=== PATIENT | female | born 1960 | race Caucasian/White ===

== ENCOUNTER 2025-01-25 06:27 | Inpatient (IN) | payer BC, SELFPAY ==
[2025-01-25] VITALS (14 sets, daily range): BP systolic 102–129; BP diastolic 46–85; PULSE 60–78; RESP 18–20; TEMP 36.4–37.7; O2SAT 89–96; BMI 26.4; BMI 27.5
--- NOTE | 2025-01-25 07:04 | XR_ITS ---
Examination: CT abdomen with intravenous contrast CT pelvis with intravenous contrast 2-D coronal reconstructions 2-D sagittal reconstructions Date and time of exam:January 25, 2025 0944 hours, comparison 02/23/2024 INDICATIONS: Right lower abdominal pain and fever beginning 3 days ago. CTDI: vol (mGy) 11 DLP: (mGycm) 653 Technique: Multiple axial sections of the abdomen and pelvis have been obtained. 64 slice high-resolution scanner used. 3 mm axial sections have been obtained, post intravenous injection of 60 cc Isovue 370 2-D sagittal, coronal reconstructions obtained. Low dose protocols were performed. One or more of the following dose reduction techniques were used; automated exposure control, adjustment of the mA and/or KV according to patient size, use of iterative reconstruction technique. Findings: Mild to moderate enlargement cardiac contour Liver is irregular in contour Small gallstones Spleen is not enlarged No pancreatic mass No extrahepatic biliary tract dilatation 29 mm fat-containing left adrenal mass,. Infrarenal abdominal aortic aneurysm AP dimension 3.7 cm No renal or ureteral calculi, no hydronephrosis Enlarged inflamed appendix with appendicolith, retrocecal and below the cecum, axial images 179 through 134, very pronounced periappendiceal and pericecal inflammatory change although no obvious abscess Colonic diverticulosis Atrophic uterus Bladder intact Advanced lumbar degenerative disc disease lower 4 lumbar levels IMPRESSION: Acute appendicitis with localized perforation No pelvic abscess
--- NOTE | 2025-01-25 07:05 | PD.EDRME ---
Rapid Medical Screening Exam RME Arrival date/time: 01/25/25 06:27 64-year-old female presents to the Emergency Department today for complaints of right lower abdominal pain ongoing for 3 to 4 days Chief Complaint: Abdominal Pain Vital signs: Vital Signs Temperature 98.4 F 01/25/25 06:45 Pulse Rate 78 01/25/25 06:45 Respiratory Rate 18 01/25/25 06:45 Blood Pressure 107/64 01/25/25 06:45 Pulse Oximetry (%) 96 01/25/25 06:45 Oxygen Delivery Method Room Air 01/25/25 06:45
--- NOTE | 2025-01-25 07:46 | EDNOTE_ITS ---
ED Abdominal Pain RME/HPI General Chief Complaint: Abdominal Pain Stated complaint: RIGHT LOWER ABD PAIN,NAUSEA Time seen by provider: 01/25/25 07:13 Arrival date/time: 01/25/25 06:27 RME / HPI RME / HPI narrative: 01/25/25 06:27 64-year-old female presents to the Emergency Department today for complaints of right lower abdominal pain ongoing for [address] SANDHU MAIN ED EVALUATION 64 year old female with history of AICD placement, s/p cardiac stent x1, thyroid CA in remission presents to the ED for evaluation of abdominal pain beginning 2 days ago and remaining constant since. Described as sharp in sensation localized to the right lower quadrant without radiation, rating as moderate to severe. Initially accompanied by constipation that turned to diarrhea yesterday, nausea, dry heaving, and decreased appetite. Patient denies any history of similar pain. Denies any known modifying factors. Denies fevers, chills, or urinary symptoms. Related Data Allergies Allergy/AdvReac Type Severity Reaction Status Date / Time Penicillins Allergy Intermediate BREAK OUT Verified 01/25/25 06:28 Review of Systems Review of Systems Systems Reviewed: All systems reviewed, normal except as documented Past Medical History Past Medical History ENDOCRINE: Positive Hypothyroidism OTHER HISTORY: Positive Cancer (Thyroid) Surgical History SURGICAL: Positive Thyroidectomy Social History SMOKING STATUS: Never smoker ED Exam Narrative Physical exam: GENERAL APPEARANCE: alert and oriented x 4, well-developed, well-nourished, appears uncomfortable HEENT: Normocephalic, atraumatic; pupils equal, round, reactive to light; EOMI; mucous membranes pink, moist; oropharynx clear NECK: Supple LUNGS: CTABL HEART: Regular rate, regular rhythm ABDOMEN: non distended; normal BS; soft, Mcburney's point tenderness, + rovsing's sign, + psoas sign; no masses, no organomegaly, no hernia EXTREMITIES: atraumatic; no edema NEUROLOGIC: awake; alert and oriented x4 PSYCHIATRIC: appropriate mood and affect SKIN: warm, dry, normal color; no rashes Course Course Course Narrative: 824: Labs were reviewed showing elevated WBC (15.9), UA is negative for infection. At this time pending CMP. Differential diagnosis includes appendicitis. 1000: I reviewed CT images - appears to have significant inflammation of appendix with appendicolith consistent with appendicitis. The CT report confirms acute appendicits with localized perforation. The patient is allergic to penicillin and ordered Flagyl and Levaquin. Will consult with surgeon. 1015: I spoke with surgeon Dr. Paul, made aware of the patient?s radiology results. Will come evaluate patient in the ED. 1020: I reviewed all the results, analysis, and treatment plan with the patient. 1100: Dr. Paul has evaluated the patient and will admit for surgery. Quality Measures none Orders Category Date Time Status CT Screening NOW Care 01/25/25 07:04 Active Insert IV NOW Care 01/25/25 07:04 Active NPO NOW Care 01/25/25 10:22 Active Diet NPO (NOW) Diet 01/25/25 10:[address] abdomen pelvis w con Stat Exams 01/25/25 07:04 Completed CBC Stat Lab 01/25/25 07:46 Completed Comprehensive Metabolic Panel Stat Lab 01/25/25 07:46 Completed Lipase Stat Lab 01/25/25 07:46 Completed UA, C/S IF [Urinalysis, C/S if Indicated] Stat Lab 01/25/25 07:33 Completed Ketorolac Inj [Toradol Inj] Med 01/25/25 07:25 Discontinued 30 mg IVP X1 ONE Levofloxacin/D5w 500 mg Ivpb [Levaquin Ivpb] Med 01/25/25 10:15 Active 500 mg in 100 ml IV QDAY Ondansetron Inj [Zofran Inj] Med 01/25/25 07:25 Discontinued 4 mg IVP X1 ONE Sodium Chloride 0.9% 1000 ml [Ns] 1,000 ml Med 01/25/25 10:21 Active IV 100 mls/hr metroNIDAZOLE/NS 500 MG IVPB [Flagyl 500 mg IV] Med 01/25/25 10:08 Discontinued 500 mg in 100 ml IV X1 Vital Signs Vital signs: Vital Signs Temperature 98.4 F 01/25/25 06:45 Pulse Rate 78 01/25/25 06:45 Respiratory Rate 18 01/25/25 06:45 Blood Pressure 107/64 01/25/25 06:45 Pulse Oximetry (%) 96 01/25/25 06:45 Oxygen Delivery Method Room Air 01/25/25 06:45 Pulse ox is 96% on room air which is adequate. Abdominal Pain MDM MDM Narrative MDM Narrative:: Lisa Glasgow, dacia scribing for and in the presence of Dr. Sandhu. Patient data External records reviewed:: [facility] previous records (I reviewed ED visit on 02/23/2024 and the patient was transferred to [facility] for GI/ERCP vs MRCP. ) Clinical information provided by:: patient Social determinants that could affect healthcare access:: none Patient has the following chronic illnesses:: AICD placement, s/p cardiac stent x1, thyroid CA in remission How is presenting disease/condition affected by chronic disease/condition?: uneffected by Evaluation data The following diagnostics were reviewed and interpreted by me:: lab results and radiology exam(s) Lab and/or radiology exams considered but not ordered:: none Interpretation Summary: Ordering Physician: Kermit LAST)Franky NP Date of Service: 01/25/25 Procedure(s): CT abdomen pelvis w con Accession Number(s): [id number] cc: Gigi Rouse MD; Kermit LAST),Franky AGOSTO; John Nicole MD~ Examination: CT abdomen with intravenous contrast CT pelvis with intravenous contrast 2-D coronal reconstructions 2-D sagittal reconstructions Date and time of exam:January 25, 2025 0944 hours, comparison 02/23/2024 INDICATIONS: Right lower abdominal pain and fever beginning 3 days ago. CTDI: vol (mGy) 11 DLP: (mGycm) 653 Technique: Multiple axial sections of the abdomen and pelvis have been obtained. 64 slice high-resolution scanner used. 3 mm axial sections have been obtained, post intravenous injection of 60 cc Isovue 370 2-D sagittal, coronal reconstructions obtained. Low dose protocols were performed. One or more of the following dose reduction techniques were used; automated exposure control, adjustment of the mA and/or KV according to patient size, use of iterative reconstruction technique. Findings: Mild to moderate enlargement cardiac contour Liver is irregular in contour Small gallstones Spleen is not enlarged No pancreatic mass No extrahepatic biliary tract dilatation 29 mm fat-containing left adrenal mass,. Infrarenal abdominal aortic aneurysm AP dimension 3.7 cm No renal or ureteral calculi, no hydronephrosis Enlarged inflamed appendix with appendicolith, retrocecal and below the cecum, axial images 179 through 134, very pronounced periappendiceal and pericecal inflammatory change although no obvious abscess Colonic diverticulosis Atrophic uterus Bladder intact Advanced lumbar degenerative disc disease lower 4 lumbar levels IMPRESSION: Acute appendicitis with localized perforation No pelvic abscess Dictated By: John Nicole MD Signed By: <Electronically signed by John Nicole MD in OV> 01/25/25 0986 Medications / Prescriptions Medications or Prescriptions considered but not ordered:: None Medication administrations:: Medication Administration History Levofloxacin/Dextrose (Levaquin Ivpb) 500 mg in 100 mls @ 100 mls/hr IV QDAY DENISE Stop: 02/01/25 10:14 Sodium Chloride (Ns) 1,000 mls @ 100 mls/hr IV .Q10H DENISE Stop: 02/24/25 10:20 Discontinued Medications Metronidazole (Flagyl 500 Mg Iv) 500 mg in 100 mls @ 100 mls/hr IV X1 ONE Stop: 01/25/25 11:07 Ketorolac Tromethamine (Ketorolac Inj 30 Mg/Ml Vial) 30 mg IVP X1 ONE Stop: 01/25/25 07:26 Last Admin: 01/25/25 09:31 Dose: 30 mg Documented By: VL Ondansetron HCl (Ondansetron Inj 2 Mg/Ml Inj 2 Ml) 4 mg IVP X1 ONE; Protocol Stop: 01/25/25 07:26 Last Admin: 01/25/25 09:32 Dose: 4 mg Documented By: VL See above Consultations Consultation(s) initiated? (list below): Yes Consultation #1 (Physician, Specialty, Details): I spoke with surgeon Dr. Paul as noted above. Time: 10:15 Diagnosis Differential diagnosis abdominal pain: abdominal pain, acute appendicitis and calculus of kidney Most likely diagnosis given after review of the tests above:: Acute appendicitis Admission Indicated Admission indicated?: indicated Admission Request Was there a request for admission?: Yes Admission Attestation Admission request attestation: Discussed case with [] from Hospitalist service regarding admission. Discussed patients ED course, exam findings, labs, and radiology results. The Hospitalist [agrees,declines] to accept the patient for admission. Disposition Plan Disposition Plan: Admit Discharge Plan Plan Patient Disposition: Other Care w/in Hosp ([facility]) Discharge Disposition comment: Admit to surgeon Dr. Paul Prescriptions/Referrals Referrals: Gigi Rouse MD [Primary Care Provider] - In 1 week Problem List Clinical Impression: Acute appendicitis Patient/Caregiver Discharge Instructions Print Language: Serbian Stand Alone Forms: [employer] Info., Patient Portal Info Letter
[2025-01-25 08:01] LABS: Basophils # (Auto) 0.0 Thou/mm3 (0.0-0.2); Basophils % (Auto) 0 % (0-2.5); Eosinophils # (Auto) 0.0 Thou/mm3 (0.0-0.5); Eosinophils % (Auto) 0 % (0-10); Hematocrit 35.9 % (36.0-46.0); Hemoglobin 12.1 g/dL (12.0-16.0); Immature Granulocytes Auto 0.10 Thou/mm3 (0.00-0.00); Lymphocytes # (Auto) 1.2 Thou/mm3 (1.0-4.8); Lymphocytes % (Auto) 8 % (10-50); Mean Corpuscular HGB Conc 33.7 g/dl (31.0-37.0); Mean Corpuscular Hemoglobin 31.7 pg (25.0-35.0); Mean Corpuscular Volume 94 fL (80-100); Monocytes # (Auto) 1.3 Thou/mm3 (0.0-0.8); Monocytes % (Auto) 8 % (0-12); Neutrophils # (Auto) 13.3 Thou/mm3 (1.8-7.7); Neutrophils % (Auto) 84 % (37-80); Nucleated Red Blood Cell # 0.00 Thou/mm3 (0.00-0.00); Nucleated Red Blood Cell % 0 /100 WBC (0); Platelet Count 205 Thou/mm3 (140-440); RDW Standard Deviation 46.0 fL (36.4-46.3); Red Blood Count 3.82 Miln/mm3 (4.00-5.20); White Blood Count 15.9 Thou/mm3 (3.6-11.0)
[2025-01-25 08:01] LABS: Collection Type, Urine Clean Catch; RBC,Urine 0 /hpf (0-3)
[2025-01-25 08:24] LABS: Bilirubin,Urine Negative (Negative); Blood,Urine Negative (Negative); Clarity,Urine Clear (Clear/Hazy); Color,Urine Yellow (Lt Yel-Yel); Culture Indicated,Urine Not Indicated; Glucose, Urine Negative (Negative); Hyaline Casts,Urine < 1 /hpf (0-1); Ketones,Urine Negative (Negative); Leukocyte Esterase,Urine Positive (Negative); Nitrite,Urine Negative (Negative); PH,Urine 6.0 (5.0-7.0); Protein,Urine 1+ (Neg - Trace); Specific Gravity,Urine 1.032 (1.001-1.035); Squamous Epithelial Cell,Urine 2 /hpf (0-5); Urobilinogen,Urine 2.0 mg/dL (0.0-1.0); WBC,Urine 2 /hpf (0-5)
[2025-01-25 08:55] LABS: Alanine Aminotransferase 11 U/L (10-49); Albumin, Serum 4.4 gm/dL (3.4-4.8); Albumin/Globulin Ratio 1.8 (1.2-2.2); Alkaline Phosphatase 103 U/L (46-116); Anion Gap 11 (7-16); Aspartate Amino Transferase 12 U/L (0-34); BUN/Creatinine Ratio 11 Ratio (12-20); Bilirubin,Total 2.7 mg/dL (0.3-1.2); Blood Urea Nitrogen 12 mg/dL (9-23); Calcium 9.2 mg/dL (8.3-10.6); Calcium (Corrected) 9.2 mg/dL (8.5-10.1); Carbon Dioxide 26.9 mMol/L (20.0-31.0); Chloride 98 mMol/L (98-107); Creatinine (Component) 1.1 mg/dL (0.6-1.3); Estimated Creatinine Clearance 66.3 mL/min (>60); Globulin 2.5 gm/dL (2.3-3.5); Glucose 159 mg/dL (74-106); Lipase 27 U/L (12-53); Osmolality,Calculated 274 (275-295); Potassium 3.7 mMol/L (3.4-5.1); Sodium 136 mMol/L (136-145); Total Protein 6.9 gm/dL (5.7-8.2); eGFR 57 See Note
[2025-01-25] MEDS: KETOROLAC INJ 30 MG/ML VIAL IVP (09:31)
[2025-01-25] MEDS: ONDANSETRON INJ 2 MG/ML INJ 2 ML 4 MG IVP ×2 (09:32→18:36)
[2025-01-25] MEDS: LEVOFLOXACIN/D5W 500 MG IVPB 500 MG/100 ML BAG 100 MG IV (11:28)
[2025-01-25] MEDS: SODIUM CHLORIDE 0.9% 1000 ML 1,000 ML 100 ML IV (11:28)
[2025-01-25 12:03] LABS: Troponin I 0.026 ng/mL (0.0-0.045)
[2025-01-25 12:05] LABS: Partial Thromboplastin Time 27.5 Seconds (22.0-36.0)
--- NOTE | 2025-01-25 13:27 | XR_ITS ---
Examination: AP chest single view TECHNIQUE: Portable sitting AP chest single view Date and time: January 25, 2025 1343 hours Comparison 02/23/2024 INDICATION: Chest pain beginning 4 days ago FINDINGS: Mild enlargement cardiac contour Cardiac leads satisfactory position No lobar pneumonia or pulmonary edema Moderate osteopenia IMPRESSION: No lobar pneumonia or pulmonary edema
[2025-01-25 13:36] LABS: INR 1.1 (0.9-1.3); Prothrombin Time 11.7 Seconds (9.0-12.2)
--- NOTE | 2025-01-25 13:49 | ESHP_ITS ---
<Statement entered by Cinthya Roque MD - 01/25/25 15:53> I have reviewed the note and agree with the resident's assessment & plan with exceptions as below. I have personally reviewed labs, imaging, home meds/prior records, examined the patient, formulated and discussed management plan with the IM team. Patient examined at bedside today. Patient coming in for evaluation of abdominal pain located in the right lower quadrant. Patient reports that she usually is constipated and need to take MiraLAX and if she does not take MiraLAX she can have bowel movements once a week. She reports that she has never had abdominal pain like this before. She does report extensive heart history including having a dual-chamber pacemaker for heart failure and she recently had stents placed in. She denies having any operation for her chronic medical infrarenal thrombus or 3.7 cm aortic aneurysm. At this time general surgery is on consult who ordered platelets for the patient before appendectomy as pt takes Plavix and took a dose today. Patient, considering cardiac history will likely need cardiac clearance for evaluation of infrarenal thrombus, aortic aneurysm and having heart failure and pacemaker. Therefore, we will consult cardiology. Levaquin can increase risk for aortic aneurysm, therefore we will discontinue this medicine. Will continue with Rocephin and Flagyl at this time. Repeat hematology and chemistry in the a.m. Will require tight BP control for aortic aneurysm hx. Surgery on consult, appreciate recommendations. #Appendicitis #History of heart failure #History of dual chamber pacemaker #History of infrarenal thrombus #History of aortic aneurysm, 3.7 cm #Hyperbilirubinemia Cinthya Roque, PGY-2 Internal Medicine Documentation for date of: 01/25/25 HPI History of Present Illness History of present illness: Mrs. Franklin is a 64 year old female with past medical history of CAD (s/p stent x1 02/2024), thyroid cancer (in remission for 40 years) presented to the ED for abdominal pain and nausea. Patient states she started to have pain about 4 days ago that was located on her R flank. States around 2 days the pain moved to more around her RLQ that does not radiate. This caused her great distress and was unable to sleep last night, prompting her to the hospital today. Patient states she has been nauseous with dry heaving, had a mild fever with headache and decreased appetite during this time as well. Patient states she is usually constipated, but had non-bloody diarrhea yesterday. Patient denied any recent sick contacts or ever having this happen before. Patient denies recent weight loss, respiratory issues, chest pain, vomiting, dysuria. Past Medical History: above Family History: none noted Surgical History: Cardiac stent x1 2023, ICD placement 2024, thyroidectomy (more than 20 yrs ago). Social History: Endorses smoking hx 10 pk years (quit a few years ago), endorses occasional alcohol use, denies recreational drug use Current Medications: Clopidogrel 75 mg, Digoxine 0.125 q other day, Aspirin 81 mg, Atorvastatin 80 mg, Ivabradine (5 mg am & pm), Entresto 12 mg (am & pm), Metoprolol 12.75 mg, Ivabradin 5 mg (am & pm), levothyroxine 88 mcg, multivitamin, stool softener, biotin, Magnesium tab 400 mg. Allergies: No known drug allergies ED Course: -Initial vitals were 98.4 F, HR 78, RR 18, BP 107/64, 96% O2 on RA. -Labs significant for WBC 15.9, glucose 159, T Bili 2.7, Trop 0.026, lipase 27. -Imaging included CT AP significant for Acute appendicitis with localized perforation & infrarenal abd aortic aneurysm 3.7cm (present on 02/2024 CTA CAP) -In the ED, patient was given Ketorolac 30 mg, Zofran 4 mg, Levofloxacin 500 mg, NS IV fluids -Patient was admitted for appendicitis, pending cardiac clearance for surgery. Review of Systems Review of systems otherwise negative except what is mentioned above. Exam Vital Signs Temp Pulse Resp BP Pulse Ox O2 Del Method 99.8 F 60 18 118/81 96 Room Air 01/25/25 10:01/25/25 10:01/25/25 10:01/25/25 10:01/25/25 10:01/25/25 10:09 Narrative Exam General: No acute distress; A&Ox3 Skin: Warm, dry, intact, no obvious rash. HENT: NCAT, EOMI, not icteric. External ears normal. No rhinorrhea. Moist mucous membranes Cardiovascular: Regular rate and rhythm, no murmur, +S1/S2. Respiratory: Lungs CTAB GI: Positive McBurney Point tenderness, Negative Rovsing's sign; rest of abd soft, non-distended. No guarding or rebound tenderness. Extremities: no edema, no cyanosis, no clubbing. Extremity pulses present Neuro: No focal deficits observed. Conversant, moving all extremities. No overt cerebellar signs/incoordination. Psychiatric: Cooperative, appropriate affect. Results: Labs 01/25/25 07:46 01/25/25 07:46 Labs: Short CBC 01/25/25 Range/Units 07:46 WBC 15.9 H (3.6-11.0) Thou/mm3 Hgb 12.1 (12.0-16.0) g/dL Hct 35.9 L (36.0-46.0) % Plt Count 205 (140-440) Thou/mm3 BMP 01/25/25 07:46 Sodium 136 Potassium 3.7 Chloride 98 Carbon Dioxide 26.9 BUN 12 Creatinine 1.1 Glucose 159 H Calcium 9.2 Cardiac Enzymes 01/25/25 Range/Units 11:31 Troponin I 0.026 (0.0-0.045) ng/mL Liver Function 01/25/25 Range/Units 07:46 Total Bilirubin 2.7 H (0.3-1.2) mg/dL AST 12 (0-34) U/L ALT 11 (10-49) U/L Alkaline Phosphatase 103 (46-116) U/L Albumin 4.4 (3.4-4.8) gm/dL Urine 01/25/25 Range/Units 07:33 Urine Color Yellow (Lt Yel-Yel) Urine Clarity Clear (Clear/Hazy) Urine pH 6.0 (5.0-7.0) Ur Specific [place] 1.032 (1.001-1.035) Urine Protein 1+ A (Neg - Trace) Urine Glucose (UA) Negative (Negative) Quality Measures Quality Measures none (surgery) Medications Home Medications and Allergies Home Medications ?Medication ?Instructions ?Recorded ?Confirmed ?Type atorvastatin 80 mg tablet mg 01/25/25 History clopidogrel 75 mg tablet mg 01/25/25 History digoxin 125 mcg (0.125 mg) tablet 0.125 mg PO .every o ther day 01/25/25 01/25/25 History levothyroxine 88 mcg tablet 88 mcg PO .AM 01/25/2504/11 History magnesium oxide 400 mg (241.3 mg mg 01/25/25 History magnesium) tablet metoprolol succinate 25 mg mg PO 01/25/25 History tablet,extended release 24 hr Allergies Allergy/AdvReac Type Severity Reaction Status Date / Time Penicillins Allergy Intermediate BREAK OUT Verified 01/25/25 06:28 Visit Medications Levofloxacin/Dextrose (Levaquin Ivpb) 500 mg in 100 mls @ 100 mls/hr IV QDAY DENISE Stop: 02/01/25 10:14 Last Admin: 01/25/25 11:28 Dose: 100 mls/hr Sodium Chloride (Ns) 1,000 mls @ 100 mls/hr IV .Q10H DENISE Stop: 02/24/25 10:20 Last Admin: 01/25/25 11:28 Dose: 100 mls/hr Discontinued Medications Metronidazole (Flagyl 500 Mg Iv) 500 mg in 100 mls @ 100 mls/hr IV X1 ONE Stop: 01/25/25 11:07 Ketorolac Tromethamine (Ketorolac Inj 30 Mg/Ml Vial) 30 mg IVP X1 ONE Stop: 01/25/25 07:26 Last Admin: 01/25/25 09:31 Dose: 30 mg Ondansetron HCl (Ondansetron Inj 2 Mg/Ml Inj 2 Ml) 4 mg IVP X1 ONE; Protocol Stop: 01/25/25 07:26 Last Admin: 01/25/25 09:32 Dose: 4 mg Assessment & Plan Plan Mrs. Franklin is a 64 year old female with past medical history of CAD (s/p stent x1 02/2024), thyroid cancer (in remission for 40 years) presented to the ED for abdominal pain and nausea. Patient was admitted for appendicitis, pending cardiac clearance for surgery. #Acute appendicitis w/ localized perforation Patient presented after days of abdominal pain which started R flank and moved to RLQ, nonradiating. Labs showed WBC 15.9, T Bili 2.7, Trop (-), lipase 27, In ED, Patient given Ketorolac 30 mg, Zofran 4 mg, Levofloxacin 500 mg, some NS IV fluids (held). -Discontinued Levofloxacin due to increased risk of Aortic aneursym and dissection. -Started Rocephin 1 gm, Flagyl 500 mg -Platelets ordered due to being on Plavix and need for surgery -Type and Screen done -Surgery Consulted -Cardiology consulted for pre-op clearance. #Abdominal Aortic Aneurysm #hx of CAD (s/p stent x1 02/2024) #HLD #CHF On admission CT AP, Infrarenal abdominal aortic aneurysm AP dimension 3.7 cm was seen. Previous admission 02/2024 CTA CAP showed Infrarenal abdominal aortic aneurysmal dilatation, AP dimension 3.7 cm with extensive chronic mural thrombus. Patient has a history of CAD (s/p stent x1 02/2024) Home meds of Clopidogrel 75 mg, Digoxine 0.125 q other day, Aspirin 81 mg, Atorvastatin 80 mg, Ivabradine (5 mg am & pm), Entresto 12 mg (am & pm), Metoprolol 12.75 mg, Ivabradin 5 mg (am & pm) -Restarted Atorvastatin 80 mg. -Digoxin levels, Hgb A1c, lipid panel, coags, tsh, ordered -cardiology consulted for surgery clearance, appreciate recs. #hyperbilirubinemia May be due to congestion from hx of CHF vs hepatobiliary irritation from localized appendix perforation Admission Total Bilirubin was elevated at 2.7. -Will continue to monitor #hx thyroid cancer s/p thyroidectomy Patient takes home medication of levothyroxine 88 mcg -will restart levothyroxine 88 mcg tomorrow morning after surgery Hospital Management: Disposition: tele Diet: NPO pending surgery GI Prophylaxis: n/a Bowel Prophylaxis: Miralax DVT Prophylaxis: SCD's CODE STATUS: FULL CODE Patient plan of care was discussed with the attending physician, Dr. Hou & senior resident Dr. Mya Lopez MD PGY-1 Attending Provider Attestation/Addendum I have discussed and was present for the essential components of the history, physical examination, diagnosis, and treatment plan with the resident. I agree with the patient's care as documented by the resident and amended herein by me. Bennie Hou DO. Although this document has been carefully reviewed, there may still be some phonetic and other typographical errors. These errors are purely grammatical due to imperfections in the software program and should not be construed in any way to compromise the substance of the patient's medical care during this visit.
[2025-01-25] MEDS: metroNIDAZOLE/NS 500 MG IVPB 500 MG/100 ML BAG 100 MG IV (14:13)
--- NOTE | 2025-01-25 16:08 | ESCONSULT_ITS ---
HPI Consult details Consult date: 01/25/25 Reason for consultation narrative: Right lower quad abdominal pain with nausea and vomiting History of present illness: 64-year-old female with history of CAD status post stent placement presented to the emergency department with worsening abdominal pain. Her symptoms started about 4 days ago with periumbilical and lower abdominal pain. The pain was initially intermittent. Since yesterday her pain has become persistent and progressively worse and localized over right lower quadrant. She has had nausea and vomiting, but denies fever, chills, diarrhea, constipation or dysuria. She denies having similar symptoms in the past. Review of Systems Constitutional Constitutional: Denies chills and Denies fever(s) Cardiovascular Cardiovascular: Denies chest pain Respiratory Respiratory: Denies cough Gastrointestinal Gastrointestinal: Reports abdominal pain, Reports nausea and Reports vomiting Genitourinary Genitourinary: Denies difficulty voiding Hematologic/Lymphatic Hematologic/Lymphatic: Denies easy bleeding and Reports easy bruising Past Medical History Surgical History OTHER SURGICAL HX: Total thyroidectomy, pacemaker/AICD implantation, cardiac cath with stent placement Social History SMOKING STATUS: Former smoker SUBSTANCE USE: does not use ALCOHOL: Current Meds Home Medications and Allergies Home Medications ?Medication ?Instructions ?Recorded ?Confirmed ?Type atorvastatin 80 mg tablet mg 01/25/25 History clopidogrel 75 mg tablet mg 01/25/25 History digoxin 125 mcg (0.125 mg) tablet 0.125 mg PO .every o ther day 01/25/25 01/25/25 History levothyroxine 88 mcg tablet 88 mcg PO .AM 01/25/2504/11 History magnesium oxide 400 mg (241.3 mg mg 01/25/25 History magnesium) tablet metoprolol succinate 25 mg mg PO 01/25/25 History tablet,extended release 24 hr Allergies Allergy/AdvReac Type Severity Reaction Status Date / Time Penicillins Allergy Intermediate BREAK OUT Verified 01/25/25 06:28 Exam Vital Signs Temp Pulse Resp BP Pulse Ox O2 Del Method 98.4 F 62 18 108/59 L 96 Room Air 01/25/25 14:50 01/25/25 14:50 01/25/25 14:50 01/25/25 14:50 01/25/25 14:50 01/25/25 14:50 Constitutional Constitutional: no acute distress Routine Abdominal Exam Comments: Abdomen is soft and nondistended. She has right lower quadrant tenderness to palpation with guarding and localized peritonitis. Results Results: Laboratory Laboratory results: results reviewed Results: Imaging CT scan - abdomen: report reviewed and image reviewed CT scan - pelvis: report reviewed and image reviewed Assessment & Plan Additional Assessment Additional comments: Acute appendicitis with localized peritonitis Plan Patient is on Plavix and she took her Plavix earlier today. Will obtain platelets for transfusion during operation, platelets will have to be brought in from [place] that may take few hours. Risks of the procedure include but not limited to infection, bleeding, injury to bowel, surrounding vascular structures, abdominal sepsis and or abdominal abscess, need for further procedure and or operation, pneumonia, blood clot, heart attack discussed with the patient. Benefits and alternatives explained to her, all her questions answered, she agreed and consented to proceed with the operation.
--- NOTE | 2025-01-25 17:19 | ESOP_ITS ---
Date of Procedure 01/25/25 Pre Op Diagnosis Acute appendicitis Post Op Diagnosis Perforated and gangrenous appendicitis with localized abscess and peritonitis Procedure Laparoscopic appendectomy with abdominal washout Findings Perforated gangrenous appendix with localized abscess and peritonitis Procedure Description Patient was brought into the operating room in supine position. After administration of general endotracheal anesthesia, abdomen was prepped and draped in standard surgical manner. Platelet transfusion was started. A Veress needle was inserted through the umbilicus and pneumoperitoneum was obtained up to 15 mmHg. The Veress needle was removed and a 5 mm umbilical incision was made. A 5 mm trocar was placed and laparoscopic camera was inserted. Under direct visualization a laparoscopic camera a 5 mm trocar placed in suprapubic region and a 10 mm trocar placed in left lower quadrant. The abdomen was inspected.there were significant amount of inflammatory reaction over the right lower quadrant with omentum adherent in the right lower quadrant. Omental adhesions was retracted cephalad into the left upper quadrant and the cecum was identified. There was perforation of the proximal aspect of the appendix with localized abscess and the appendix appeared to be gangrenous in appearance. The purulent fluid was washed and irrigated. A window was created between the appendix and mesoappendix and the appendix was divided near the appendix and cecal junction with blue Endo MERRILL stapling device. The mesoappendix was divided with serna Endo MERRILL stapling device. The appendix was placed inside an Endo Catch and removed from the abdomen utilizing left lower quadrant trocar site. An additional 5 mm trocar was required in the right upper quadrant to retract the small bowel cephalad to the pelvis could be clearly visualized, washed and irrigated. Abdomen and pelvis copiously and thoroughly washed and irrigated, all the fluids were suctioned and the suctioned fluid returned clear. Hemostasis was adequate and satisfactory, staple lines were intact without bleeding or any leakage. Left lower quadrant trocar sites fascial defect was closed with 0 Vicryl using Endo closure device. Instruments and trocars removed, pneumoperitoneum was evacuated and the incisions closed with 4-0 Monocryl subcuticular fashion. Instruments, needles and sponge counts were reported to be correct ??2. Patient tolerated the procedure well, was extubated, breathing spontaneously and without difficulty and was transferred to postanesthesia care in stable condition. Anesthesia GETA and local Pathology / specimen Other (Appendix) Estimated Blood Loss 25 Condition Stable Disposition PACU Surgeon Lefty Paul MD Surgical Staff Operation Date: 01/25/25 16:15 Case Staff COMPOSITION WORKER: Jorge Randall
--- NOTE | 2025-01-25 17:32 | SUR.PHASEI ---
pt received to pacu bay 1. vss. breathing even and unlabored. dermabond in place to abdomen x4. report from nurse yuli and threading machine operator tahir. oral air way out by tahir on arrival. pt denies pain and nausea.
--- NOTE | 2025-01-25 17:51 | SUR.PHASEI ---
report called to renita on ms. vss. dressing cdi. tolerating ice chips. breathing even and unlabored. transported to room via [facility]
[2025-01-25] MEDS: CEFOXITIN 2 GM in SODIUM CHLORIDE 0.9% (Popper) 50 ML IV (18:37)
[2025-01-25] MEDS: MORPHINE SULF INJ 10 MG/ML VIAL 2 MG IVP ×2 (18:38→23:21)
--- NOTE | 2025-01-25 19:40 | ESCONSULT_ITS ---
RE: YEIMI HODGES : 1960 DATE OF CONSULTATION: 01/25/2025 REASON FOR EVALUATION: Cardiac clearance for appendectomy, emergency surgery, complaint of abdominal pain. HISTORY OF PRESENT ILLNESS: The patient is a 64-year-old female with a longstanding history of known CAD, coronary stent placement about a year ago in 02/2024, possibly chronic systolic heart failure, status post INCIDENT ENGINEER defibrillator ICD implantation, came to the hospital with severe abdominal pain, lower abdominal pain, McBurney sign, positive acute appendicitis, requesting cardiac clearance for emergency surgery. By the time I saw the patient, already was taken to the emergency room. I reviewed the medical history and findings. We will assess the patient after the patient has recovered from surgery. ALLERGIES: NONE. MEDICATIONS AT HOME: She has been on, 1. Atorvastatin 2. Clopidogrel 75 mg daily 3. Digoxin 125 daily. 4. Levothyroxine 88 mcg daily. 5. Metoprolol succinate PAST MEDICAL HISTORY: Known CAD status post stent placement. Details unavailable. ICD implantation, INCIDENT ENGINEER, defibrillator implantation, possibility for chronic systolic heart failure, hypertension, hypothyroidism and hypercholesterolemia. REVIEW OF SYSTEMS: Not obtained. PHYSICAL EXAMINATION: Physical exam findings per the evaluation by resident physician. The patient was a well-nourished female, alert, awake and in no acute distress. Vital Signs: Blood pressure of 118/81. Pulse rate is 60, respirations 18, temperature normal. Pulse ox 96% on room air. HEENT: Head is atraumatic. Neck: Supple. Lungs: Decreased breath sounds. Heart: Sounds normal, S1, S2 regular. Abdomen: Thin and soft. Evidence of positive McBurney point tenderness. Extremities: No edema. /Rectal: Not performed. IMAGING: The CT of abdomen and pelvis showed evidence of acute appendicitis with localized perforation. Previous EKG showed sinus rhythm with left bundle branch block. IMPRESSION: 1. Acute appendicitis with perforation. 2. Known coronary artery disease with previous stent placement. 3. Ischemic cardiomyopathy, chronic heart failure, status post INCIDENT ENGINEER defibrillator implantation, congestive heart failure, well compensated. 5. History of thyroid carcinoma, thyroidectomy, now on Synthroid replacement. 6. Hyperbilirubinemia. 7. History of abdominal aortic aneurysm, measuring 3.7 cm in diameter. RECOMMENDATIONS: The patient has been more than 1 year since stent placement, which is performed in 02/2024 and clopidogrel can be stopped for a few days especially in case any bleeding. Recommend continuing medical management postoperatively including low-dose beta- macrina. If the patient is on metoprolol, continue the low-dose beta-macrina. Also, continue the Entresto and statin therapy. Obtain the digoxin levels and can restart the cardiac medications. We will continue to monitor the patient postoperatively with you. DT: 18:27:24 TT: 19:39:00 Ref: [id number] - TID: [id number]
[2025-01-25] MEDS: KCL 20 mEq/L in D5-1/2NS 20 MEQ/1,000 ML BAG 60 MEQ IV (19:58)
[2025-01-25] MEDS: DOCUSATE SOD 100 MG CAPSULE PO (20:58)
[2025-01-25] MEDS: ATORVASTATIN CALCIUM 20 MG TABLET 80 MG PO (20:58)
[2025-01-25] MEDS: metroNIDAZOLE/NS 500 MG IVPB 500 MG/100 ML BAG 200 MG IV (22:04)
--- NOTE | 2025-01-25 23:39 | PC.NURSE ---
Pt got up to the bathrooom to void but unable to void at this time. Will do bladder scan.
[2025-01-26] VITALS (12 sets, daily range): BP systolic 106–137; BP diastolic 44–63; PULSE 58–88; RESP 16–96; TEMP 36.1–36.3; O2SAT 92–96; BMI 27.8
--- NOTE | 2025-01-26 00:07 | PC.NURSE ---
Did a bladder scan and shows 0cc at this time.
[2025-01-26] MEDS: LEVOTHYROXINE SODIUM 88 MCG TABLET PO (05:10)
[2025-01-26] MEDS: CEFOXITIN 2 GM in SODIUM CHLORIDE 0.9% (Popper) 50 ML IV ×4 (05:10→23:23)
[2025-01-26] MEDS: metroNIDAZOLE/NS 500 MG IVPB 500 MG/100 ML BAG 200 MG IV ×3 (05:19→21:00)
[2025-01-26 06:43] LABS: Basophils # (Auto) 0.0 Thou/mm3 (0.0-0.2); Basophils % (Auto) 0 % (0-2.5); Eosinophils # (Auto) 0.0 Thou/mm3 (0.0-0.5); Eosinophils % (Auto) 0 % (0-10); Hematocrit 30.3 % (36.0-46.0); Hemoglobin 10.0 g/dL (12.0-16.0); Immature Granulocytes Auto 0.05 Thou/mm3 (0.00-0.00); Lymphocytes # (Auto) 0.8 Thou/mm3 (1.0-4.8); Lymphocytes % (Auto) 6 % (10-50); Mean Corpuscular HGB Conc 33.0 g/dl (31.0-37.0); Mean Corpuscular Hemoglobin 31.4 pg (25.0-35.0); Mean Corpuscular Volume 95 fL (80-100); Monocytes # (Auto) 0.5 Thou/mm3 (0.0-0.8); Monocytes % (Auto) 4 % (0-12); Neutrophils # (Auto) 12.0 Thou/mm3 (1.8-7.7); Neutrophils % (Auto) 89 % (37-80); Nucleated Red Blood Cell # 0.00 Thou/mm3 (0.00-0.00); Nucleated Red Blood Cell % 0 /100 WBC (0); Platelet Count 208 Thou/mm3 (140-440); RDW Standard Deviation 46.9 fL (36.4-46.3); Red Blood Count 3.18 Miln/mm3 (4.00-5.20); White Blood Count 13.4 Thou/mm3 (3.6-11.0)
[2025-01-26 06:52] LABS: INR 1.1 (0.9-1.3); Partial Thromboplastin Time 27.9 Seconds (22.0-36.0); Prothrombin Time 12.4 Seconds (9.0-12.2)
[2025-01-26 07:04] LABS: Alanine Aminotransferase 11 U/L (10-49); Albumin, Serum 3.7 gm/dL (3.4-4.8); Albumin/Globulin Ratio 1.7 (1.2-2.2); Alkaline Phosphatase 84 U/L (46-116); Anion Gap 10 (7-16); Aspartate Amino Transferase 13 U/L (0-34); BUN/Creatinine Ratio 9 Ratio (12-20); Bilirubin,Total 1.7 mg/dL (0.3-1.2); Blood Urea Nitrogen 12 mg/dL (9-23); Calcium 8.2 mg/dL (8.3-10.6); Calcium (Corrected) 8.4 mg/dL (8.5-10.1); Carbon Dioxide 23.2 mMol/L (20.0-31.0); Cardiac Risk Estimate 2.8 RATIO (3.7-5.6); Chloride 103 mMol/L (98-107); Cholesterol 116 mg/dL (132-200); Creatinine (Component) 1.3 mg/dL (0.6-1.3); Digoxin 0.4 ng/mL (0.8-2.0); Estimated Creatinine Clearance 57.4 mL/min (>60); Globulin 2.2 gm/dL (2.3-3.5); Glucose 245 mg/dL (74-106); HDL Cholesterol 41 mg/dL (40-60); LDL Cholesterol,Calculated 60 mg/dL (0-130); Magnesium 1.7 mg/dL (1.6-2.6); Osmolality,Calculated 279 (275-295); Phosphorous 2.3 mg/dL (2.4-5.1); Potassium 4.3 mMol/L (3.4-5.1); Sodium 136 mMol/L (136-145); Thyroid Stimulating Hormone 3.03 uIU/mL (0.55-4.78); Total Protein 5.9 gm/dL (5.7-8.2); Triglycerides 73 mg/dL (30-150); eGFR 46 See Note
[2025-01-26] MEDS: Magnesium Sulfate 2 GM Ivpb 2 GM/50 ML BAG IV (09:28)
[2025-01-26] MEDS: NAPH,KPH MBDB 1 PACKET (1.5 GM) 2 PACKET PO (09:29)
[2025-01-26] MEDS: DOCUSATE SOD 100 MG CAPSULE PO (09:29)
[2025-01-26] MEDS: POLYETHYLENE GLYCOL 17 GM PACKET PO (09:29)
[2025-01-26] MEDS: ACETAMINOPHEN 325 MG TABLET 650 MG PO (09:36)
--- NOTE | 2025-01-26 11:16 | PC.SS ---
Patient is alert/oriented. Patient was able to verify demographics. Patient states she resides with spouse. Admitted for appendicitis. Patient is independent with ADL's. Patient does not possess any DME. Patient had surgery yesterday with Dr. Paul. Patient is on a clear liquid diet. Patient states she has a CPAP at home. No 02 at home. Patient states she has an upcoming sleep study scheduled in [place]. Patient states she purchased her current CPAP on her own. PCP: Dr. Rouse. Last appt. was last week. Pharmacy: [facility]. D/c plan is to return home. Alt medical decision maker: , Wilfred, transportation: family
--- NOTE | 2025-01-26 11:22 | PD.SURPROG ---
Documentation for date of: 01/26/25 Subjective Subjective Narrative: Patient is seen and examined. She has some lower abdominal pain. She denies nausea or vomiting Exam Vital Signs Temp Pulse Resp BP Pulse Ox O2 Del Method O2 Flow Rate 97.1 F 60 19 120/50 L 92 L Nasal Cannula 2 01/26/25 07:48 01/26/25 08:00 01/26/25 07:48 01/26/25 07:48 01/26/25 07:48 01/26/25 07:48 01/26/25 07:48 Constitutional Constitutional: no acute distress Routine Abdominal Exam Comments: Abdomen is soft and mildly distended. Bowel sounds are active. Incisions are clean, dry and intact Assessment & Plan Assessment Additional comments: Postop day #1 status post laparoscopic appendectomy for perforated and gangrenous appendicitis with peritonitis and abscess Plan Continue IV antibiotics. Hep-Lock IV fluids and start clear liquids. Hold Plavix may start Lovenox or heparin. Increase ambulation PROCEDURES: Procedures Laparoscopic appendectomy with abdominal washout
[2025-01-26 11:26] LABS: Glucose Estimated Average 137 mg/dL (80-131); Hemoglobin A1C 6.4 % Hgb (4.8-6.0)
[2025-01-26] MEDS: HEPARIN SOD INJ 5000 UNIT/ML VIAL SC (14:12)
[2025-01-26] MEDS: DIGOXIN 0.125 MG TABLET PO (14:54)
--- NOTE | 2025-01-26 16:31 | ESPR_ITS ---
<Statement entered by Scar Cook MD - 01/28/25 11:14> Agree on the assessment and plan on this note. No immediated surgical complications. We will resume GDMT after surgery as per cardio recs. - Patient's plan and care discussed with my attending, Dr. Savi Cook MD Internal Medicine PGY-3 Documentation for date of: 01/26/25 Subjective Subjective Interval history: Patient examined at bedside in good spirits. She states that she has mild abdominal pain but it is overall much improved since her admission. She has not had a BM yet and has not passed gas. She ate her food today but her appetitie is minimal stating clear diet was good for today . Per surgery her cardiac drugs have been restarted. She understands that we are awaiting her BMs before discharge. Exam Vital Signs Temp Pulse Resp BP Pulse Ox O2 Del Method O2 Flow Rate 97.4 F 60 20 114/58 L 94 L Nasal Cannula 2 01/26/25 12:00 01/26/25 14:54 01/26/25 12:00 01/26/25 14:54 01/26/25 12:00 01/26/25 12:00 01/26/25 12:00 Narrative Exam General: No acute distress; A&Ox3 Skin: Warm, dry, intact, no obvious rash. HENT: NCAT, EOMI, not icteric. External ears normal. No rhinorrhea. Moist mucous membranes Cardiovascular: Regular rate and rhythm, no murmur, +S1/S2. Respiratory: Lungs CTAB GI: Mild TTP of the abdomen, NBS heard; abd soft, non-distended. No guarding or rebound tenderness. Incisions appear clean, intact, no oozing, pink edges with good signs of healing without leakage. Extremities: no edema, no cyanosis, no clubbing. Extremity pulses present Neuro: No focal deficits observed. Conversant, moving all extremities. No overt cerebellar signs/incoordination. Psychiatric: Cooperative, appropriate affect. Objective Labs 01/26/25 06:01 01/26/25 06:01 Labs: Laboratory Results - last 24 hr 01/26/25 06:01 WBC 13.4 H RBC 3.18 L Hgb 10.0 L D Hct 30.3 L MCV 95 MCH 31.4 MCHC 33.0 RDW Std Deviation 46.9 H Plt Count 208 Neut % (Auto) 89 H Lymph % (Auto) 6 L Mason % (Auto) 4 Eos % (Auto) 0 Baso % (Auto) 0 Neut # (Auto) 12.0 H Lymph # (Auto) 0.8 L Mason # (Auto) 0.5 Eos # (Auto) 0.0 Baso # (Auto) 0.0 Immature Gran # (Auto) 0.05 H Absolute Nucleated RBC 0.00 Immature Gran % 0 Nucleated RBC % 0 PT 12.4 H INR 1.1 APTT 27.9 Sodium 136 Potassium 4.3 D Chloride 103 Carbon Dioxide 23.2 Anion Gap 10 BUN 12 Creatinine 1.3 Estim Creat Clear Calc 57.4 L eGFR 46 L BUN/Creatinine Ratio 9 L Glucose [address] Glu mg/dL 137 H Hemoglobin A1c 6.4 H Calculated Osmolality 279 Calcium 8.2 L Corrected Calcium 8.4 L Phosphorus 2.3 L Magnesium 1.7 Total Bilirubin 1.7 H D AST 13 ALT 11 Alkaline Phosphatase 84 Total Protein 5.9 Albumin 3.7 D Globulin 2.2 L Albumin/Globulin Ratio 1.7 Triglycerides 73 Cholesterol 116 L LDL Cholesterol, Calc 60 HDL Cholesterol 41 Cholesterol/HDL Ratio 2.8 L TSH 3.03 Digoxin 0.4 L Quality Measures Quality Measures none (surgery) Assessment & Plan Assessment Current Active Medications: Generic Name Dose Route Start Last Admin Trade Name Freq PRN Reason Stop Dose Admin Acetaminophen 650 mg 01/25/25 15:07 01/26/25 09:36 Acetaminophen 325 Mg Tablet PO 02/24/25 15:06 650 mg Q6H PRN Administration Fever >100.5 or pain 1-3 Hydrocodone Bitart/Acetaminophen 1 tab 01/25/25 15:07 Hydrocodone/Apap 5/325 Tablet PO 01/30/25 15:06 Q4HR PRN PAIN SCALE 4-6 (Moderate Atorvastatin Calcium 80 mg 01/25/25 21:00 01/25/25 20:58 Atorvastatin Calcium 20 Mg Tablet PO 02/24/25 20:59 80 mg HS DENISE Administration Dextrose 25 ml 01/26/25 09:07 Dextrose 50%-Water Inj 50 Ml Syringe IV 02/25/25 09:06 Q15MIN PRN BG 50-70 responsive npo pt Dextrose 50 ml 01/26/25 09:07 Dextrose 50%-Water Inj 50 Ml Syringe IV 02/25/25 09:06 Q15MIN PRN BG <50 OR BG <70 & pt unresponsive Digoxin 0.125 mg 01/26/25 14:00 01/26/25 14:54 Digoxin 0.125 Mg Tablet PO 02/25/25 13:59 0.125 mg Q48H DENISE Administration Docusate Sodium 100 mg 01/25/25 21:00 01/26/25 09:29 Docusate Sod 100 Mg Capsule PO 02/24/25 20:59 100 mg BID DENISE Administration Protocol Glucagon 1 mg 01/26/25 09:07 Glucagon Inj 1 Mg Vial IM Q15MIN PRN BG <70, and no IV access Heparin Sodium (Porcine) 5,000 unit 01/26/25 14:00 01/26/25 14:12 Heparin Sod Inj 5000 Unit/Ml Vial SC 02/09/25 13:59 5,000 unit Q12HR DENISE Administration Metronidazole 500 mg in 100 mls @ 200 mls/hr 01/25/25 15:07 01/26/25 14:12 Flagyl 500 Mg Iv IV 02/01/25 15:06 200 mls/hr Q8HR DENISE Administration Cefoxitin Sodium 2 gm/ Sodium 50 mls @ 100 mls/hr 01/25/25 18:19 01/26/25 12:31 Chloride IV 02/01/25 18:18 100 mls/hr Q6HR DENISE Administration Insulin Human Lispro 0 unit 01/26/25 11:30 01/26/25 12:30 Insulin Lispro (Admelog) 1 Unit/0.01 Ml Unit SC 02/25/25 11:29 Not Given AC [facility] Protocol Levothyroxine Sodium 88 mcg 01/26/25 06:00 01/26/25 05:10 Levothyroxine Sodium 88 Mcg Tablet PO 02/25/25 05:59 88 mcg ACBR DENISE Administration Metoprolol Succinate 12.5 mg 01/26/25 21:00 Metoprolol Succinate Xl 25 Mg Tabcr PO 02/25/25 20:59 HS DENISE Morphine Sulfate 2 mg 01/25/25 15:07 01/25/25 23:21 Morphine Sulf Inj 10 Mg/Ml Vial IVP 01/30/25 15:06 2 mg Q2H PRN Administration PAIN SCALE 7-10 (Severe Ondansetron HCl 4 mg 01/25/25 16:29 01/25/25 18:36 Ondansetron Inj 2 Mg/Ml Inj 2 Ml IVP 02/24/25 16:28 4 mg Q6HR PRN Administration NAUSEA OR VOMITING Protocol Polyethylene Glycol 17 gm 01/26/25 09:00 01/26/25 09:29 Polyethylene Glycol 17 Gm Packet PO 02/25/25 08:59 17 gm QDAY DENISE Administration Plan Mrs. Franklin is a 64 year old female with past medical history of CAD (s/p stent x1 02/2024), thyroid cancer (in remission for 40 years) presented to the ED for abdominal pain and nausea. Patient was admitted for appendicitis. Surgery cleared her for restarting cardiac drugs post Digioxin level: 0.4. Her wounds are healing well and she is prepared to be discharged after BMs. #Acute appendicitis w/ localized perforation s/p surgery: resolved Patient presented after days of abdominal pain which started R flank and moved to RLQ, nonradiating. Labs showed WBC 15.9, T Bili 2.7, Trop (-), lipase 27, In ED, Patient given Ketorolac 30 mg, Zofran 4 mg, Levofloxacin 500 mg, some NS IV fluids (held). -Discontinued Levofloxacin due to increased risk of Aortic aneursym and dissection. -Started Rocephin 1 gm, Flagyl 500 mg -Platelets ordered due to being on Plavix and need for surgery -Type and Screen done -Surgery Consulted -Cardiology consulted for pre-op clearance. -Awaiting BMs for discharge #Abdominal Aortic Aneurysm #hx of CAD (s/p stent x1 02/2024) #HLD #CHF On admission CT AP, Infrarenal abdominal aortic aneurysm AP dimension 3.7 cm was seen. Previous admission 02/2024 CTA CAP showed Infrarenal abdominal aortic aneurysmal dilatation, AP dimension 3.7 cm with extensive chronic mural thrombus. Patient has a history of CAD (s/p stent x1 02/2024) Home meds of Clopidogrel 75 mg, Digoxine 0.125 q other day, Aspirin 81 mg, Atorvastatin 80 mg, Ivabradine (5 mg am & pm), Entresto 12 mg (am & pm), Metoprolol 12.75 mg, Ivabradin 5 mg (am & pm) -Restarted Atorvastatin 80 mg. -Digoxin levels, Hgb A1c, lipid panel, coags, tsh, ordered -cardiology consulted for surgery clearance, appreciate recs. #hyperbilirubinemia May be due to congestion from hx of CHF vs hepatobiliary irritation from localized appendix perforation Admission Total Bilirubin was elevated at 2.7. -Will continue to monitor #hx thyroid cancer s/p thyroidectomy Patient takes home medication of levothyroxine 88 mcg -will restart levothyroxine 88 mcg tomorrow morning after surgery Hospital Management: Disposition: tele Diet: clear liquid GI Prophylaxis: n/a Bowel Prophylaxis: Miralax DVT Prophylaxis: SCD's CODE STATUS: FULL CODE Patient plan of care was discussed with the attending physician, Dr. Hou & senior resident Dr. Mya Farrar MD PGY-1 Attending Provider Attestation/Addendum I have discussed and was present for the essential components of the history, physical examination, diagnosis, and treatment plan with the resident. I agree with the patient's care as documented by the resident and amended herein by me. Bennie Hou, DO. Although this document has been carefully reviewed, there may still be some phonetic and other typographical errors. These errors are purely grammatical due to imperfections in the software program and should not be construed in any way to compromise the substance of the patient's medical care during this visit. Patient seen and evaluated this AM. Presently postop day 1, patient denies passing gas or any bowel movements. Will likely need a couple days of IV antibiotics before going home.
--- NOTE | 2025-01-26 17:09 | PC.PT ---
PT sharmila received. Patient was approached at 1700. Patient is alert. As per patient, she already ambulated to the hallway and also was ambulating to the restroom. Patient is I. No further skilled PT needs at this time.
[2025-01-26] MEDS: ATORVASTATIN CALCIUM 20 MG TABLET 80 MG PO (21:00)
[2025-01-26] MEDS: HYDROcodone/APAP 5/325 TABLET 1 TAB PO (21:00)
[2025-01-26] MEDS: METOPROLOL SUCCINATE XL 25 MG TABCR 12.5 MG PO (21:02)
--- NOTE | 2025-01-26 22:51 | ECHO_ITS ---
Transthoracic Echo Report Ht (in): 72 Wt (lb): 205 Exam Location: Echo Lab Status: Inpatient Electromagnet Crane Operator: Isaias López Indications: Procedure Performed: BP: 127 / 65 HR: 63 MEASUREMENTS (Male / Female) Normal Values 2D ECHO LV Diastolic Diameter PLAX 8.0 cm 4.2 - 5.9 / 3.9 - 5.3 cm LV Systolic Diameter PLAX 7.4 cm IVS Diastolic Thickness 0.9 cm 0.6 - 1.0 / 0.6 - 0.9 cm LVPW Diastolic Thickness 0.8 cm 0.6 - 1.0 / 0.6 - 0.9 cm LV Relative Wall Thickness 0.2 LVOT Diameter 2.3 cm LV Ejection Fraction MOD BP 31.2 % >= 55 % LV Cardiac Index MOD BP 2618.6 cm?/min?m? LV Ejection Fraction MOD 4C 16.5 % LV Cardiac Index MOD 4C 1093.5 cm?/min?m? LV Ejection Fraction 4C AL 18.9 % LV Cardiac Index 4C AL 1305.9 cm?/min?m? LV Ejection Fraction MOD 2C 37.8 % LV Cardiac Index MOD 2C 3539.4 cm?/min?m? LV Ejection Fraction 2C AL 37.7 % LV Cardiac Index 2C AL 3640.0 cm?/min?m? LA Volume Index 32.6 cm?/m? 16 - 28 cm?/m? M-MODE Aortic Root Diameter MM 3.0 cm LA Systolic Diameter MM 4.3 cm LA Ao Ratio MM 1.4 AV Cusp Separation MM 1.9 cm DOPPLER AV Peak Velocity 155.0 cm/s AV Peak Gradient 9.6 mmHg AV Mean Gradient 5.0 mmHg AV Velocity Time Integral 33.5 cm LVOT Peak Velocity 57.6 cm/s LVOT Peak Gradient 1.3 mmHg LVOT Velocity Time Integral 12.6 cm LVOT Cardiac Index 1506.4 cm?/min?m? AV Area Cont Eq vti 1.6 cm? AV Area Cont Eq pk 1.5 cm? MV Peak Velocity 136.0 cm/s MV Peak Gradient 7.4 mmHg MV Mean Velocity 98.5 cm/s MV Mean Gradient 4.0 mmHg MV Area PHT 3.0 cm? MR Peak Velocity 561.5 cm/s MR Peak Gradient 126.1 mmHg Mitral E Point Velocity 71.3 cm/s Mitral A Point Velocity 116.0 cm/s Mitral E to A Ratio 0.6 TR Peak Velocity 194.0 cm/s TR Peak Gradient 15.1 mmHg PV Peak Velocity 100.0 cm/s PV Peak Gradient 4.0 mmHg FINDINGS Left Ventricle Global left ventricular systolic function is severely decreased.The left ventricular cavity size is moderately increased. There is grade I diastolic dysfunction of the left ventricle (impaired relaxation pattern). The ejection fraction is visually estimated below 20 %. Right Ventricle The right ventricle is normal in size and systolic function. The estimated right ventricular systolic pressure, 23mmHg. Left Atrium The left atrial cavity size is mildly increased. no thrombus formation present. Right Atrium The right atrium is normal by two-dimensional imaging, color flow and Doppler imaging with no structural abnormalities, no thrombus formation present. Atrial Septum The interatrial septum appears normal with no evidence of a shunt. Aorta The aorta is normal by two-dimensional, color flow and Doppler interrogation. Mitral Valve The mitral valve is normal by two-dimensional, color flow and Doppler interrogation. Moderate mitral regurgitation. Aortic Valve Mild thickening of the aortic valve leaflets. There is no significant aortic valve regurgitation. Tricuspid Valve The tricuspid valve is normal by two-dimensional, color flow and Doppler interrogation. There is trace tricuspid valve regurgitation. Pulmonic Valve The pulmonic valve is not well visualized. There is no significant pulmonic valve regurgitation. Vessels The pulmonary artery appears normal. The inferior vena cava pulmonary and hepatic veins appear normal. Pericardium There is a small pericardial effusion. CONCLUSIONS Indication: LVEF assess CHF Dilated cardiomyopathy with Global left ventricular systolic function is severely decreased. Estimated EF 20%. RV normal size and function LA mildly enlarged Moderate MR, Trace TR. small pericardial effusion. Tita Charlse (Electronically Signed) Final Date: 29 January 2025 16:21
[2025-01-27] VITALS (10 sets, daily range): BP systolic 120–134; BP diastolic 55–74; PULSE 59–74; RESP 17–96; TEMP 36.1–36.3; O2SAT 94–97; BMI 27.8
--- NOTE | 2025-01-27 01:08 | ESPR_ITS ---
RE: YEIMI HODGES : 1960 DATE OF SERVICE: 01/26/2025 SUBJECTIVE: The patient is a 64-year-old lady. I reviewed the medical history from [facility] as well as the patient's history obtained directly. She is a 64-year-old lady with history of nonischemic cardiomyopathy diagnosed with acute systolic heart failure back in 02/2024. The patient initially presented to the hospital in [facility] in 02/2024 with nausea, vomiting, shortness of breath, and orthopnea. The patient was found to have left bundle branch block on EKG. Troponin was slightly elevated. The patient was having GI symptoms; however, she was in acute heart failure. She was sent to [facility] in [place]. The patient was seen by Dr. Gloria in cardiology consultation and found to have nonischemic cardiomyopathy, ejection fraction of 15%. Coronary angiogram showed evidence of only 40% stenosis of the left anterior descending artery. Dr. Miller performed a PCI on a 40% lesion. Stent placement was performed reporting 80% stenosis, which is probably unnecessary. Left anterior descending stent placement was performed for mild to moderate lesion. The patient's cardiomyopathy was out of proportion to CAD. Ejection fraction only 15%-20% with most of the coronary artery is widely patent with mild disease of mid left anterior descending artery. A 2.5 x 20 mm stent was placed in mid LAD, which was in my opinion unnecessary. The patient did not improve. Ejection fraction remained 15%-20%. Subsequently in 09/2024, patient underwent HEAD OF INSIGHT defibrillator implant, which was appropriate. Left bundle branch block with very wide QRS complex with nonischemic cardiomyopathy performed by Dr. Estevez. Subsequently, she appears to have improved clinically heart failure symptoms, but do not have ejection fraction assessment subsequently. The patient was discharged home on optimal medical management, clinically doing fairly well on small dose of digoxin, levothyroxine for hypothyroidism, clopidogrel 75 mg daily, aspirin 81 mg daily, atorvastatin 80 mg daily, metoprolol succinate only 12.5 mg daily, not on any PAULINE or ARB possibly because of low blood pressure, came to the hospital with acute ruptured appendicitis. Yesterday, patient probably underwent emergency appendectomy successfully. The patient definitely was moderate to high risk, but because emergency surgery was performed successfully with excellent outcome, she is feeling a lot better. She does not complain of any chest pain or shortness of breath. Her exam shows blood pressure 137/56 and pulse 60. Still feeling a lot better and does not have any other symptoms. She says she improved clinically, but ejection fraction apparently remained low. The patient has been on dual antiplatelet drug therapy for 11 months. Chest x-ray does show cardiomegaly and no evidence of congestive heart failure. Clear lung quintana. EKG showed evidence of left bundle branch block pattern, normal sinus rhythm in February, but there is no EKG this admission on the chart. ALLERGIES: NONE. MEDICATIONS: As described above. REVIEW OF SYSTEMS: Cardiovascular: No orthopnea or pain. No shortness of breath or chest pain. Review of systems otherwise is negative. PHYSICAL EXAMINATION: General: Well nourished, thin built elderly female, alert, awake, in no acute distress. Vital Signs: Blood pressure 137/56, pulse 60, respirations 16, and temperature normal. HEENT: Head is atraumatic and normocephalic. Neck: Supple. No JVD. Chest: Symmetrical. Lungs: Clear. No rales or rhonchi. Heart: S1 and S2 regular. No gallops. Abdomen: Thin and soft. Extremities: No edema. Genitourinary and Rectal: Not performed. Neurologic: Normal. IMPRESSION: 1. Acute appendicitis rupture, requiring emergency surgery with good outcome. 2. Nonischemic cardiomyopathy and chronic systolic heart failure, [place] [employer] functional class II, stable. 3. Status post cardiac resynchronization therapy defibrillator implantation. 4. Status post mid left anterior descending stent placement, possibly inappropriate for mild to moderate disease, did not help ejection fraction, not surprisingly. 5. Idiopathic dilated cardiomyopathy. RECOMMENDATIONS: The patient should be continued on medical management. We will resume her beta-macrina and metoprolol succinate 12.5 mg daily. Recommend Entresto 24/26 mg twice daily, low dose as tolerated. We will also recommend getting a cardiac echo for assessment of left ventricular ejection fraction. Dual antiplatelet drug therapy is concerned. It is almost 1 year since stent placement. No need for resuming Plavix. The patient can resume aspirin 81 mg daily and guideline-directed medical management for congestive heart failure. She is clinically not in heart failure, hence no need to treat with diuretics, but definitely avoid any excessive IV fluids postoperatively as she can go into volume overload and congestive heart failure. I would like to thank for referring this patient here for cardiac evaluation. We will glad to follow the patient with you. DT: 22:59:17 TT: 00:09:00 Ref: [id number] - TID: [id number] MTDD
[2025-01-27] MEDS: CEFOXITIN 2 GM in SODIUM CHLORIDE 0.9% (Popper) 50 ML IV ×4 (05:12→23:17)
[2025-01-27] MEDS: LEVOTHYROXINE SODIUM 88 MCG TABLET PO (05:13)
[2025-01-27] MEDS: metroNIDAZOLE/NS 500 MG IVPB 500 MG/100 ML BAG 200 MG IV ×3 (05:13→21:28)
[2025-01-27] MEDS: HYDROcodone/APAP 5/325 TABLET 1 TAB PO ×4 (05:18→21:28)
[2025-01-27 06:27] LABS: INR 1.0 (0.9-1.3); Prothrombin Time 11.4 Seconds (9.0-12.2)
[2025-01-27 06:32] LABS: Basophils # (Auto) 0.0 Thou/mm3 (0.0-0.2); Basophils % (Auto) 0 % (0-2.5); Eosinophils # (Auto) 0.0 Thou/mm3 (0.0-0.5); Eosinophils % (Auto) 0 % (0-10); Hematocrit 31.1 % (36.0-46.0); Hemoglobin 10.2 g/dL (12.0-16.0); Immature Granulocytes Auto 0.04 Thou/mm3 (0.00-0.00); Lymphocytes # (Auto) 1.0 Thou/mm3 (1.0-4.8); Lymphocytes % (Auto) 9 % (10-50); Mean Corpuscular HGB Conc 32.8 g/dl (31.0-37.0); Mean Corpuscular Hemoglobin 31.5 pg (25.0-35.0); Mean Corpuscular Volume 96 fL (80-100); Monocytes # (Auto) 0.5 Thou/mm3 (0.0-0.8); Monocytes % (Auto) 5 % (0-12); Neutrophils # (Auto) 9.3 Thou/mm3 (1.8-7.7); Neutrophils % (Auto) 85 % (37-80); Nucleated Red Blood Cell # 0.00 Thou/mm3 (0.00-0.00); Nucleated Red Blood Cell % 0 /100 WBC (0); Platelet Count 245 Thou/mm3 (140-440); RDW Standard Deviation 47.5 fL (36.4-46.3); Red Blood Count 3.24 Miln/mm3 (4.00-5.20); White Blood Count 10.9 Thou/mm3 (3.6-11.0)
[2025-01-27 06:46] LABS: Alanine Aminotransferase 24 U/L (10-49); Albumin, Serum 4.0 gm/dL (3.4-4.8); Albumin/Globulin Ratio 1.6 (1.2-2.2); Alkaline Phosphatase 89 U/L (46-116); Anion Gap 7 (7-16); Aspartate Amino Transferase 26 U/L (0-34); BUN/Creatinine Ratio 10 Ratio (12-20); Bilirubin,Total 1.0 mg/dL (0.3-1.2); Blood Urea Nitrogen 12 mg/dL (9-23); Calcium 9.1 mg/dL (8.3-10.6); Calcium (Corrected) 9.1 mg/dL (8.5-10.1); Carbon Dioxide 26.1 mMol/L (20.0-31.0); Chloride 108 mMol/L (98-107); Creatinine (Component) 1.2 mg/dL (0.6-1.3); Estimated Creatinine Clearance 62.2 mL/min (>60); Globulin 2.5 gm/dL (2.3-3.5); Glucose 116 mg/dL (74-106); Magnesium 2.5 mg/dL (1.6-2.6); Osmolality,Calculated 281 (275-295); Phosphorous 1.8 mg/dL (2.4-5.1); Potassium 4.2 mMol/L (3.4-5.1); Sodium 141 mMol/L (136-145); Total Protein 6.5 gm/dL (5.7-8.2); eGFR 51 See Note
[2025-01-27] MEDS: HEPARIN SOD INJ 5000 UNIT/ML VIAL SC ×2 (09:50→21:27)
--- NOTE | 2025-01-27 10:53 | PD.SURPROG ---
Documentation for date of: 01/27/25 Subjective Subjective Narrative: Patient is seen and examined. Her pain is improving. She is tolerating clear liquids without nausea or vomiting. She started passing gas and had bowel movement Exam Vital Signs Temp Pulse Resp BP Pulse Ox O2 Del Method O2 Flow Rate 97.1 F 66 18 127/65 96 Room Air 1 01/27/25 08:00 01/27/25 08:00 01/27/25 08:00 01/27/25 08:00 01/27/25 08:00 01/27/25 08:00 01/27/25 04:00 Constitutional Constitutional: no acute distress Routine Abdominal Exam Comments: Abdomen is soft and very minimally distended. She has lower abdominal tenderness to deep palpation, no rebound tenderness or peritonitis. Incisions are clean, dry and intact Assessment & Plan Assessment Additional comments: Postop day #2 status post laparoscopic appendectomy Plan Continue IV antibiotics for additional 24 hours as patient had perforated and gangrenous appendicitis with peritonitis and abscess. Advance diet. If continues to improve clinically, possible discharge tomorrow on oral antibiotic for additional 7 days PROCEDURES: Procedures Laparoscopic appendectomy with abdominal washout
--- NOTE | 2025-01-27 20:06 | ESPR_ITS ---
<Statement entered by Scar Cook MD - 01/28/25 15:14> Patient was seen and examined at bedside. Agree on the assessment and plan on this note. - Patient's plan and care discussed with my attending, Dr. Savi Cook MD Internal Medicine PGY-3 Documentation for date of: 01/27/25 Subjective Subjective Interval history: Patient examined at bedside in good spirits. She states that she has mild abdominal pain but it is overall much improved since her admission. Had a large BM with lots of gas, BM was initially solid and firm and then following much flatulence it became watery and loose without any blood. Her diet has been advanced to full. Per surgery her cardiac drugs have been restarted. She understands that we are waiting to finsh her IV antibiotics before discharge following srugery reccomendations. Exam Vital Signs Temp Pulse Resp BP Pulse Ox O2 Del Method O2 Flow Rate 97.0 F 68 18 128/74 95 Room Air 1 01/27/25 16:00 01/27/25 16:00 01/27/25 16:00 01/27/25 16:01/27/25 16:01/27/25 16:01/27/25 04:00 Narrative Exam General: No acute distress; A&Ox3 Skin: Warm, dry, intact, no obvious rash. HENT: NCAT, EOMI, not icteric. External ears normal. No rhinorrhea. Moist mucous membranes Cardiovascular: Regular rate and rhythm, no murmur, +S1/S2. Respiratory: Lungs CTAB GI: Mild TTP of the abdomen, NBS heard; abd soft, non-distended. No guarding or rebound tenderness. Incisions appear clean, intact, no oozing, pink edges with good signs of healing without leakage. Extremities: no edema, no cyanosis, no clubbing. Extremity pulses present Neuro: No focal deficits observed. Conversant, moving all extremities. No overt cerebellar signs/incoordination. Psychiatric: Cooperative, appropriate affect. Objective Labs 01/28/25 05:40 01/28/25 05:40 Labs: Laboratory Results - last 24 hr 01/27/25 05:36 WBC 10.9 RBC 3.24 L Hgb 10.2 L Hct 31.1 L MCV 96 MCH 31.5 MCHC 32.8 RDW Std Deviation 47.5 H Plt Count 245 D Neut % (Auto) 85 H Lymph % (Auto) 9 L [place] % (Auto) 5 Eos % (Auto) 0 Baso % (Auto) 0 Neut # (Auto) 9.3 H Lymph # (Auto) 1.0 [place] # (Auto) 0.5 Eos # (Auto) 0.0 Baso # (Auto) 0.0 Immature Gran # (Auto) 0.04 H Absolute Nucleated RBC 0.00 Immature Gran % 0 Nucleated RBC % 0 PT 11.4 INR 1.0 Sodium 141 Potassium 4.2 Chloride 108 H Carbon Dioxide 26.1 Anion Gap 7 BUN 12 Creatinine 1.2 Estim Creat Clear Calc 62.2 eGFR 51 L BUN/Creatinine Ratio 10 L Glucose 116 H D Calculated Osmolality 281 Calcium 9.1 Corrected Calcium 9.1 Phosphorus 1.8 L Magnesium 2.5 Total Bilirubin 1.0 D AST 26 ALT 24 Alkaline Phosphatase 89 Total Protein 6.5 Albumin 4.0 Globulin 2.5 Albumin/Globulin Ratio 1.6 Quality Measures Quality Measures none (surgery) Assessment & Plan Assessment Current Active Medications: Generic Name Dose Route Start Last Admin Trade Name Freq PRN Reason Stop Dose Admin Acetaminophen 650 mg 01/25/25 15:07 01/26/25 09:36 Acetaminophen 325 Mg Tablet PO 02/24/25 15:06 650 mg Q6H PRN Administration Fever >100.5 or pain 1-3 Hydrocodone Bitart/Acetaminophen 1 tab 01/25/25 15:07 01/27/25 17:29 Hydrocodone/Apap 5/325 Tablet PO 01/30/25 15:06 1 tab Q4HR PRN Administration PAIN SCALE 4-6 (Moderate Atorvastatin Calcium 80 mg 01/25/25 21:00 01/26/25 21:00 Atorvastatin Calcium 20 Mg Tablet PO 02/24/25 20:59 80 mg HS DENISE Administration Dextrose 25 ml 01/26/25 09:07 Dextrose 50%-Water Inj 50 Ml Syringe IV 02/25/25 09:06 Q15MIN PRN BG 50-70 responsive npo pt Dextrose 50 ml 01/26/25 09:07 Dextrose 50%-Water Inj 50 Ml Syringe IV 02/25/25 09:06 Q15MIN PRN BG <50 OR BG <70 & pt unresponsive Digoxin 0.125 mg 01/26/25 14:00 01/26/25 14:54 Digoxin 0.125 Mg Tablet PO 02/25/25 13:59 0.125 mg Q48H DENISE Administration Docusate Sodium 100 mg 01/25/25 21:00 01/27/25 09:51 Docusate Sod 100 Mg Capsule PO 02/24/25 20:59 Not Given BID [facility] Protocol Glucagon 1 mg 01/26/25 09:07 Glucagon Inj 1 Mg Vial IM Q15MIN PRN BG <70, and no IV access Heparin Sodium (Porcine) 5,000 unit 01/26/25 14:00 01/27/25 09:50 Heparin Sod Inj 5000 Unit/Ml Vial SC 02/09/25 13:59 5,000 unit Q12HR DENISE Administration Metronidazole 500 mg in 100 mls @ 200 mls/hr 01/25/25 15:07 01/27/25 14:50 Flagyl 500 Mg Iv IV 02/01/25 15:06 200 mls/hr Q8HR DENISE Administration Cefoxitin Sodium 2 gm/ Sodium 50 mls @ 100 mls/hr 01/25/25 18:19 01/27/25 17:30 Chloride IV 02/01/25 18:18 100 mls/hr Q6HR DENISE Administration Insulin Human Lispro 0 unit 01/26/25 11:30 01/27/25 17:00 Insulin Lispro (Admelog) 1 Unit/0.01 Ml Unit SC 02/25/25 11:29 Not Given [facility] Protocol Levothyroxine Sodium 88 mcg 01/26/25 06:00 01/27/25 05:13 Levothyroxine Sodium 88 Mcg Tablet PO 02/25/25 05:59 88 mcg ACBR DENISE Administration Metoprolol Succinate 12.5 mg 01/26/25 21:00 01/26/25 21:02 Metoprolol Succinate Xl 25 Mg Tabcr PO 02/25/25 20:59 12.5 mg HS DENISE Administration Morphine Sulfate 2 mg 01/25/25 15:07 01/25/25 23:21 Morphine Sulf Inj 10 Mg/Ml Vial IVP 01/30/25 15:06 2 mg Q2H PRN Administration PAIN SCALE 7-10 (Severe Ondansetron HCl 4 mg 01/25/25 16:29 01/25/25 18:36 Ondansetron Inj 2 Mg/Ml Inj 2 Ml IVP 02/24/25 16:28 4 mg Q6HR PRN Administration NAUSEA OR VOMITING Protocol Polyethylene Glycol 17 gm 01/26/25 09:00 01/27/25 09:51 Polyethylene Glycol 17 Gm Packet PO 02/25/25 08:59 Not Given QDAY DENISE Plan Mrs. Franklin is a 64 year old female with past medical history of CAD (s/p stent x1 02/2024), thyroid cancer (in remission for 40 years) presented to the ED for abdominal pain and nausea. Patient was admitted for appendicitis. Surgery cleared her for restarting cardiac drugs post Digioxin level: 0.4. Her wounds are healing well and she is prepared to be discharged after BMs. #Acute appendicitis w/ localized perforation s/p surgery POD 2 Patient presented after days of abdominal pain which started R flank and moved to RLQ, nonradiating. Labs showed WBC 15.9, T Bili 2.7, Trop (-), lipase 27, In ED, Patient given Ketorolac 30 mg, Zofran 4 mg, Levofloxacin 500 mg, some NS IV fluids (held). -Discontinued Levofloxacin due to increased risk of Aortic aneursym and dissection. -Started Rocephin 1 gm, Flagyl 500 mg -Platelets ordered due to being on Plavix and need for surgery -Type and Screen done -Surgery Consulted - BM occurred #Abdominal Aortic Aneurysm #hx of CAD (s/p stent x1 02/2024) #HLD #CHF On admission CT AP, Infrarenal abdominal aortic aneurysm AP dimension 3.7 cm was seen. Previous admission 02/2024 CTA CAP showed Infrarenal abdominal aortic aneurysmal dilatation, AP dimension 3.7 cm with extensive chronic mural thrombus. Patient has a history of CAD (s/p stent x1 02/2024) Home meds of Clopidogrel 75 mg, Digoxine 0.125 q other day, Aspirin 81 mg, Atorvastatin 80 mg, Ivabradine (5 mg am & pm), Entresto 12 mg (am & pm), Metoprolol 12.75 mg, Ivabradin 5 mg (am & pm) -Restarted Atorvastatin 80 mg. -Digoxin levels, Hgb A1c, lipid panel, coags, tsh, ordered -cardiology consulted for surgery clearance, appreciate recs. -Per cardio 01/27:We will resume her beta-macrina and metoprolol succinate 12.5 mg daily. Recommend Entresto 24/26 mg twice daily, low dose as tolerated. We will also recommend getting a cardiac echo for assessment of left ventricular ejection fraction. It is almost 1 year since stent placement. No need for resuming Plavix. The patient can resume aspirin 81 mg daily and guideline-directed medical management for congestive heart failure. -FUP ECHO 01/28 in O/P #hyperbilirubinemia: Resolved #hx thyroid cancer s/p thyroidectomy Patient takes home medication of levothyroxine 88 mcg - restart levothyroxine 88 mcg [facility] Hospital Management: Disposition: tele Diet: Full GI Prophylaxis: n/a Bowel Prophylaxis: Miralax prn DVT Prophylaxis: SCD's CODE STATUS: FULL CODE Patient plan of care was discussed with the attending physician, Dr. Hou & senior resident Dr. Joyce Farrar MD PGY-1 Attending Provider Attestation/Addendum I have discussed and was present for the essential components of the history, physical examination, diagnosis, and treatment plan with the resident. I agree with the patient's care as documented by the resident and amended herein by me. Bennie Hou DO. Although this document has been carefully reviewed, there may still be some phonetic and other typographical errors. These errors are purely grammatical due to imperfections in the software program and should not be construed in any way to compromise the substance of the patient's medical care during this visit. Patient seen and evaluated this AM. Bowel movements reported, presently postop day 2, likely 1 additional day on IV antibiotics per surgery recs then can go home
[2025-01-27] MEDS: ATORVASTATIN CALCIUM 20 MG TABLET 80 MG PO (21:28)
[2025-01-27] MEDS: METOPROLOL SUCCINATE XL 25 MG TABCR 12.5 MG PO (21:28)
[2025-01-28] VITALS (8 sets, daily range): BP systolic 111–147; BP diastolic 55–75; PULSE 53–68; RESP 17; TEMP 36.1–36.2; O2SAT 94–97; BMI 27.8
[2025-01-28] MEDS: HYDROcodone/APAP 5/325 TABLET 1 TAB PO ×2 (03:13→07:21)
[2025-01-28] MEDS: LEVOTHYROXINE SODIUM 88 MCG TABLET PO (06:04)
[2025-01-28] MEDS: metroNIDAZOLE/NS 500 MG IVPB 500 MG/100 ML BAG 200 MG IV ×2 (06:05→13:45)
[2025-01-28] MEDS: CEFOXITIN 2 GM in SODIUM CHLORIDE 0.9% (Popper) 50 ML IV ×2 (06:05→11:35)
[2025-01-28 06:36] LABS: Basophils # (Auto) 0.0 Thou/mm3 (0.0-0.2); Basophils % (Auto) 0 % (0-2.5); Eosinophils # (Auto) 0.2 Thou/mm3 (0.0-0.5); Eosinophils % (Auto) 2 % (0-10); Hematocrit 30.6 % (36.0-46.0); Hemoglobin 10.0 g/dL (12.0-16.0); Immature Granulocytes Auto 0.04 Thou/mm3 (0.00-0.00); Lymphocytes # (Auto) 1.6 Thou/mm3 (1.0-4.8); Lymphocytes % (Auto) 19 % (10-50); Mean Corpuscular HGB Conc 32.7 g/dl (31.0-37.0); Mean Corpuscular Hemoglobin 31.3 pg (25.0-35.0); Mean Corpuscular Volume 96 fL (80-100); Monocytes # (Auto) 0.8 Thou/mm3 (0.0-0.8); Monocytes % (Auto) 9 % (0-12); Neutrophils # (Auto) 6.1 Thou/mm3 (1.8-7.7); Neutrophils % (Auto) 70 % (37-80); Nucleated Red Blood Cell # 0.00 Thou/mm3 (0.00-0.00); Nucleated Red Blood Cell % 0 /100 WBC (0); Platelet Count 255 Thou/mm3 (140-440); RDW Standard Deviation 47.7 fL (36.4-46.3); Red Blood Count 3.20 Miln/mm3 (4.00-5.20); White Blood Count 8.8 Thou/mm3 (3.6-11.0)
[2025-01-28 06:58] LABS: Alanine Aminotransferase 30 U/L (10-49); Albumin, Serum 3.7 gm/dL (3.4-4.8); Albumin/Globulin Ratio 1.7 (1.2-2.2); Alkaline Phosphatase 81 U/L (46-116); Anion Gap 9 (7-16); Aspartate Amino Transferase 25 U/L (0-34); BUN/Creatinine Ratio 13 Ratio (12-20); Bilirubin,Total 0.8 mg/dL (0.3-1.2); Blood Urea Nitrogen 12 mg/dL (9-23); Calcium 8.7 mg/dL (8.3-10.6); Calcium (Corrected) 8.9 mg/dL (8.5-10.1); Carbon Dioxide 26.2 mMol/L (20.0-31.0); Chloride 107 mMol/L (98-107); Creatinine (Component) 0.9 mg/dL (0.6-1.3); Estimated Creatinine Clearance 82.9 mL/min (>60); Globulin 2.2 gm/dL (2.3-3.5); Glucose 85 mg/dL (74-106); Magnesium 2.0 mg/dL (1.6-2.6); Osmolality,Calculated 281 (275-295); Phosphorous 2.2 mg/dL (2.4-5.1); Potassium 4.0 mMol/L (3.4-5.1); Sodium 142 mMol/L (136-145); Total Protein 5.9 gm/dL (5.7-8.2); eGFR > 60 See Note
[2025-01-28] MEDS: HEPARIN SOD INJ 5000 UNIT/ML VIAL SC (08:32)
[2025-01-28] MEDS: NAPH,KPH MBDB 1 PACKET (1.5 GM) 2 PACKET PO (09:09)
--- NOTE | 2025-01-28 10:17 | ESDS_ITS ---
<Statement entered by Cinthya Roque MD - 01/29/25 14:06> I have reviewed the note and agree with the resident's assessment & plan with exceptions as below. I have personally reviewed labs, imaging, home meds/prior records, examined the patient, formulated and discussed management plan with the IM team. Patient examined at bedside today. Patient had appendectomy formed by Dr. Paul, patient continued to improve, and was cleared for discharge with follow- up with Dr Paul outpatient. Patient was given cefdinir and Flagyl as patient cannot get fluoroquinolones at this time because there is high risk for aneurysm in which she already has aortic aneurysm at 3.6 cm. Patient was then discharged with the following instructions listed below. Cinthya Roque, PGY-2 Internal Medicine Planned Discharge Date 01/28/25 DS: Providers Provider Date of admission: 01/25/25 11:20 Primary care physician: Gigi Rouse MD Admitting Provider: Cinthya Roque MD Attending Provider on Admission: Froy Hou DO Consults: 01/25/25 13:26 Consult to Cardiology Stat Comment: Consulting Provider: Michel Servin 01/25/25 14:46 Consult to General Surgery Routine Comment: Consulting Provider: Lefty Paul Attending Provider on DC: Froy Hou DO Discharging Provider: Froy Hou DO DS: Diagnosis Problem List Completed Was Problem List Reviewed/Reconciled?: Yes Hospital Course Hospital Course Hospital course: Mrs. Franklin is a 64 year old female with past medical history of CAD (s/p stent x1 02/2024), thyroid cancer (in remission for 40 years) presented to the ED for abdominal pain and nausea. Patient was admitted for appendicitis. In the ED her vitals were stable and only significant lab WBC: 15, CTAP showed Acute appendicitis with localized perforation & infrarenal abd aortic aneurysm 3.7cm, given Ketorolac 30 mg, Zofran 4 mg, Levofloxacin 500 mg, NS IV fluids. Appendectomy was performed by general surgeon, Dr. Paul and patient recieved 3 days of IV antibiotics rocephin and flagyl (fluroguinanlones avoided due to AAA) Discharge Instructions: Follow-up with your primary care provider within 1 week Take your medicines as prescribed I am prescribing you antibiotics, take as prescribed Follow up with your general surgeon, Dr. Paul, within one week of discharge Follow up with your picker and sorter load and unload within one week I recommend to do a repeat blood count (CBC) within one week of discharge Return to ED if your symptoms worsen or return #Acute appendicitis w/ localized perforation s/p surgery POD 2 #Abdominal Aortic Aneurysm #hx of CAD (s/p stent x1 02/2024) #HLD #CHF #hyperbilirubinemia: Resolved #hx thyroid cancer s/p thyroidectomy Patient's plan and care discussed with my attending, Dr. Hou, and supervising resident, MD Morgan Blanc MD Internal Medicine PGY-1 Time Spent with Patient Time attestation: Total time spent providing and/or coordinating discharge services: Time spent: Greater than 30 minutes Exam Vital Signs Temp Pulse Resp BP Pulse Ox O2 Del Method O2 Flow Rate 97.1 F 53 L 17 141/63 H 94 L Room Air 1 01/28/25 07:58 01/28/25 07:58 01/28/25 07:58 01/28/25 07:58 01/28/25 07:58 01/28/25 07:58 01/27/25 04:00 Narrative Exam General: No acute distress; A&Ox3 Skin: Warm, dry, intact, no obvious rash. HENT: NCAT, EOMI, not icteric. External ears normal. No rhinorrhea. Moist mucous membranes Cardiovascular: Regular rate and rhythm, no murmur, +S1/S2. Respiratory: Lungs CTAB GI: Mild TTP of the abdomen, NBS heard; abd soft, non-distended. No guarding or rebound tenderness. Incisions appear clean, intact, no oozing, pink edges with good signs of healing without leakage. Extremities: no edema, no cyanosis, no clubbing. Extremity pulses present Neuro: No focal deficits observed. Conversant, moving all extremities. No overt cerebellar signs/incoordination. Psychiatric: Cooperative, appropriate affect. Discharge Plan Plan Patient Disposition: HOME (Self Care) Patient condition on transfer: Stable Care Plan Goals: Discharge instructions Follow-up with your primary care provider within 1 week Take your medicines as prescribed I am prescribing you antibiotics, take as prescribed Follow up with your general surgeon, Dr. Paul, within one week of discharge Follow up with your picker and sorter load and unload within one week I recommend to do a repeat blood count (CBC) within one week of discharge Return to ED if your symptoms worsen or return Prescriptions/Referrals Prescriptions/Med Rec: New hydrocodone-acetaminophen 5-325 mg Tablet 1 tab PO Q4HR MDD 4 PRN (Reason: Pain Scale 4-6 (Moderate) Qty: 10 0RF cefdinir 300 mg capsule 300 mg PO BID 7 Days Qty: 14 0RF Rx Instructions: Take one tablet by mouth twice a day metronidazole 500 mg tablet 500 mg PO Q8H 7 Days Qty: 21 0RF Rx Instructions: Take one tablet by mouth three times a day Continued levothyroxine 88 mcg tablet 88 mcg PO .AM digoxin 125 mcg (0.125 mg) tablet 0.125 mg PO .every other day Patient Comments: TAKE 1 TABLET BY MOUTH EVERY OTHER DAY atorvastatin 80 mg tablet 80 mg PO QDAY Patient Comments: TAKE 1 TABLET BY MOUTH EVERY DAY magnesium oxide 400 mg (241.3 mg magnesium) tablet 400 mg PO QDAY Patient Comments: TAKE 1 TABLET BY MOUTH EVERY DAY metoprolol succinate 25 mg tablet extended release 24 hr 12.5 mg PO HS Patient Comments: TAKE 1/2 TABLET BY MOUTH EVERY DAY AT BEDTIME ivabradine 5 mg tablet 5 mg PO BID Patient Comments: TAKE 1 TABLET BY MOUTH TWICE A DAY Entresto 24-26 mg tablet 0.5 tab PO BID Patient Comments: 1/2 tab in the morning 1/2 tab at night Held clopidogrel 75 mg tablet 75 mg PO QDAY Hold Instructions: speak with your picker and sorter load and unload about resuming this medicine as it has almost been one year since you have been on this medicine Patient Comments: TAKE 1 TABLET BY MOUTH EVERY DAY Referrals: Gigi Rouse MD [Primary Care Provider] - Lefty Paul MD [Physician] - Froy Hou DO [Physician] - Patient/Caregiver Discharge Instructions Discharge Activity: activity as tolerated Education Materials: Appendectomy Laparoscopic Dc, Preventing Surgical Site Infections Print Language: Slovenian Activity Restrictions/Additional Instructions: May shower. May resume Plavix and home medications. Avoid lifting, straining, pulling or pushing for 4 weeks. May take over the counter laxatives if no bowel movement in 2 days. Follow up with Dr. Paul in 2 weeks, call [phone] for an appointment. Stand Alone Forms: [employer]ema Award Info., Patient Portal Info Letter Discharge Order Discharge Orders: Discharge (Routine); Ordered 01/28/25 Ordered By: Cinthya Roque Quality Discharge Quality Measures VTE prophylaxis Attestestation MD Attestation I have discussed and was present for the essential components of the discharge history, physical examination, diagnosis, and discharge treatment plan with the resident. I agree with the patient's discharge care as documented by the resident and amended herein by me. Bennie Hou DO. The patient understood all discharge instructions, all questions were answered satisfactorily. The patient was instructed to return to the Emergency Department is symptoms worsened or persisted. Patient was having bowel movements, stable, afebrile and tolerating p.o. intake at time of discharge home. Patient will be discharged on a short course of cefdinir and Flagyl. see med rec above all questions answered satisfactorily. Although this document has been carefully reviewed, there may still be some phonetic and other typographical errors. These errors are purely grammatical due to imperfections in the software program and should not be construed in any way to compromise the substance of the patient's medical care during this visit.
--- NOTE | 2025-01-28 13:27 | PD.SURPROG ---
Documentation for date of: 01/28/25 Subjective Subjective Narrative: Patient is seen and examined. Her pain is improving. She is tolerating diet without nausea or vomiting and having bowel movements Exam Vital Signs Temp Pulse Resp BP Pulse Ox O2 Del Method O2 Flow Rate 97.1 F 68 17 147/75 H 95 Room Air 1 01/28/25 11:48 01/28/25 11:48 01/28/25 11:48 01/28/25 11:48 01/28/25 11:48 01/28/25 11:48 01/27/25 04:00 Constitutional Constitutional: no acute distress Routine Abdominal Exam Comments: Abdomen is soft and nondistended. Incisions are clean, dry and intact Assessment & Plan Assessment Additional comments: Postop day #3 status post laparoscopic appendectomy Plan May discharge home on oral antibiotics for 7 days PROCEDURES: Procedures Laparoscopic appendectomy with abdominal washout
[2025-01-28] MEDS: DIGOXIN 0.125 MG TABLET PO (13:44)
--- NOTE | 2025-01-28 14:40 | PC.SS ---
ifrah note: Pending surgery rec's. Possible d/c home today or tomorrow
--- NOTE | 2025-01-28 14:42 | PC.SS ---
rounding note: Patient received surgery rec's and has d/c orders for home today. No d/c needs.
== END 2025-01-28 14:55 | disposition home or self-care (01) | DRG 398 ==
LOC: SERX 11:14 → SERHOLD 11:56 → S3SX 15:13 → SERHOLD 01-26 07:04 → S3SX 01-26 07:04
PROVIDERS: Nurse Practitioner Primary Care; Surgery; Emergency Provider Family Medicine; PCP Internal Medicine; Visit Provider Student in an Organized Health Care Education/Training Program
PROC: 0DTJ4ZZ Resection of Appendix, Percutaneous Endoscopic Approach (ICD-10-PCS; CPT 44970; principal; 2025-01-25 16:00)
DX: K35.33 Acute appendicitis with perforation, localized peritonitis, and gangrene, with abscess (principal); R17 Unspecified jaundice; K59.00 Constipation, unspecified; I50.9 Heart failure, unspecified; Z95.0 Presence of cardiac pacemaker; Z86.79 Personal history of other diseases of the circulatory system; K66.0 Peritoneal adhesions (postprocedural) (postinfection); Z87.891 Personal history of nicotine dependence; Z85.850 Personal history of malignant neoplasm of thyroid; I25.10 Atherosclerotic heart disease of native coronary artery without angina pectoris; Z95.5 Presence of coronary angioplasty implant and graft
CPT/HCPCS: 36415; 71045; 74177; 80053; 80061; 80162; 81001; 83036; 83690; 83735; 84100; 84443; 84484; 85025; 85610; 85730; 86850; 86900; 86901; 86965; 93306; 96365; 96366; 96375; 99284; A4217; A4649; J0694; J1100; J1644; J1885; J1956; J2250; J2270; J2405; J2704; J3010; J3475; J3480; J3490; J7030; J7050; P9035; Q9967; A9270; J1836